=== PATIENT | male | born 1980 ===

== ENCOUNTER 2018-04-03 15:21 | Day surgery (SDC) | payer SELFPAY ==
[2018-04-03] MEDS ORDERED: Tdap Vaccine 0.5 ml Vial (10-64 yrs) IM ONE ×2 (15:38→15:55)
[2018-04-03] MEDS ORDERED: Sodium Chloride 0.9% 1,000 ML IV ONE (15:38)
[2018-04-03] MEDS ORDERED: Piperacillin/Tazobact 3.375 gm 100 ML IVPB STA (15:42)
[2018-04-03] MEDS ORDERED: Sodium Chloride 0.9% 1,000 ML ONE (16:00)
[2018-04-03] MEDS ORDERED: Piperacillin/Tazobact 3.375 gm 100 ML IVPB ONE (16:01)
[2018-04-03 16:40] LABS: BASO # 0.1 K/uL (0.0-0.2); BASO % 0.8 % (0.0-2.0); EOS # 0.2 K/uL (0.0-0.7); EOS % 2.1 % (0.0-4.0); HEMOGLOBIN 14.2 g/dL (12.0-18.0); LYMPH # 2.4 K/uL (1.0-4.3); LYMPH % 29.3 % (20.0-40.0); MEAN CELL VOLUME 85.2 fL (80.0-94.0); MEAN CORPUSCULAR HEMOGLOBIN 28.3 pg (27.0-31.0); MEAN CORPUSCULAR HGB CONC 33.2 g/dL (33.0-37.0); MEAN PLATELET VOLUME 9.6 fL (7.2-11.7); MONO # 0.6 K/uL (0.0-0.8); MONO % 7.8 % (0.0-10.0); NRBC % 0.1 % (0.0-2.0); RBC 5.01 Mil/uL (4.40-5.90); RED CELL DISTRIBUTION WIDTH 13.7 % (11.5-14.5); WHITE BLOOD COUNT 8.3 K/uL (4.8-10.8)
[2018-04-03 16:47] LABS: PROTHROMBIN TIME 10.4 SECONDS (9.7-12.2)
--- NOTE | 2018-04-03 16:55 | RAD ---
PROCEDURE: Right Hand Radiographs. HISTORY: Trauma COMPARISON: None. FINDINGS: Note that the examination is slightly limited due to apparent gauze/bandage is which overlie portions of the 2nd through 5th fingers. BONES: No definitive radiographic evidence of acute displaced fracture nor dislocation.. JOINTS: Normal. No significant degenerative osteoarthritic changes. SOFT TISSUES: There appears to be mild soft tissue swelling proximal margins of the 2nd 3rd and 4th fingers. No radiopaque foreign bodies are identified OTHER FINDINGS: None. IMPRESSION: Slightly limited study to overlying gauze and/or bandages as described. Demonstrating no evidence of acute displaced fracture nor dislocation.. Questionable soft tissue swelling proximal margins of the 2nd, 3rd and 4th fingers
[2018-04-03 17:02] LABS: ALB/GLOB RATIO 1.6 (1.0-2.1); ALBUMIN 4.7 g/dL (3.5-5.0); ALT/SGPT 17 U/L (21-72); AST/SGOT 26 U/L (17-59); BLOOD UREA NITROGEN 19 mg/dL (9-20); CALCIUM 8.7 mg/dl (8.6-10.4); GFR NON-AFRICAN AMERICAN > 60
--- NOTE | 2018-04-03 18:01 | CP.PCM.HP ---
History of Present Illness - History of Present Illness History of Present Illness: Plastic Surgery H&P This 37M with no PMH presented to the ED immediately following a right 2nd digit laceration that he sustained with a table saw. The patient reports that he came right to the ER. He reports that he has normal sensation however he is unable to extend his his affected digit. He denies any significant hemorrhage or any other compounding injuries. He deneis any fever chills chest pain or SOB. PMH: Denies PSH: Denies ALL: Denies Social: Denies vices Present on Admission - Present on Admission Any Indicators Present on Admission: No Review of Systems - Review of Systems Review of Systems: 12 point review of symptoms conducted and negative Past Patient History - Past Social History Smoking Status: Never Smoked - PSYCHIATRIC Hx Substance Use: No - SURGICAL HISTORY Hx Surgeries: No - ANESTHESIA Hx Anesthesia: No Meds Allergies/Adverse Reactions: Allergies Allergy/AdvReac Type Severity Reaction Status Date / Time No Known Allergies Allergy Verified 04/03/18 15:29 Physical Exam - Constitutional Appears: Non-toxic, No Acute Distress - Head Exam Head Exam: ATRAUMATIC, NORMOCEPHALIC - Eye Exam Eye Exam: EOMI - ENT Exam ENT Exam: Mucous Membranes Moist - Respiratory Exam Respiratory Exam: NORMAL BREATHING PATTERN - Cardiovascular Exam Cardiovascular Exam: +S1, +S2 - GI/Abdominal Exam GI & Abdominal Exam: Soft. absent: Tenderness - Extremities Exam Additional comments: Right 2nd digit laceration with skin avulsion, lacerated extensor tendon with exposed carpal bones, no hemorrhage. Sensation intact distal to laceration. Limited extension of the 2nd and 3rd digit. - Neurological Exam Neurological exam: Alert, Oriented x3 - Psychiatric Exam Psychiatric exam: Normal Affect, Normal Mood - Skin Skin Exam: Dry, Intact Results - Vital Signs Recent Vital Signs: Last Vital Signs Temp 98.9 F 04/03/18 16:57 Pulse 64 04/03/18 16:57 Resp 17 04/03/18 16:57 BP 124/77 04/03/18 16:57 Pulse Ox 99 04/03/18 16:57 - Labs Result Diagrams: 04/03/18 16:33 04/03/18 16:33 Labs: Laboratory Results - last 24 hr 04/03/18 04/03/18 04/03/18 16:33 16:33 16:33 WBC 8.3 RBC 5.01 Hgb 14.2 Hct 42.7 MCV 85.2 MCH 28.3 MCHC 33.2 RDW 13.7 Plt Count 217 MPV 9.6 Neut % (Auto) 60.0 Lymph % (Auto) 29.3 [place] % (Auto) 7.8 Eos % (Auto) 2.1 Baso % (Auto) 0.8 Neut # (Auto) 5.0 Lymph # (Auto) 2.4 [place] # (Auto) 0.6 Eos # (Auto) 0.2 Baso # (Auto) 0.1 PT INR APTT Sodium 138 Potassium 3.7 Chloride 102 Carbon Dioxide 26 Anion Gap 14 BUN 19 Creatinine 1.3 Est GFR ( Amer) > 60 Est GFR (Non-Af Amer) > 60 Random Glucose 93 Calcium 8.7 Total Bilirubin 0.3 AST 26 ALT 17 L Alkaline Phosphatase 73 Total Protein 7.6 Albumin 4.7 Globulin 2.9 Albumin/Globulin Ratio 1.6 Blood Type O POSITIVE Antibody Screen Negative 04/03/18 16:33 WBC RBC Hgb Hct MCV MCH MCHC RDW Plt Count MPV Neut % (Auto) Lymph % (Auto) [place] % (Auto) Eos % (Auto) Baso % (Auto) Neut # (Auto) Lymph # (Auto) [place] # (Auto) Eos # (Auto) Baso # (Auto) PT 10.4 INR 1.0 APTT 31 Sodium Potassium Chloride Carbon Dioxide Anion Gap BUN Creatinine Est GFR ( Amer) Est GFR (Non-Af Amer) Random Glucose Calcium Total Bilirubin AST ALT Alkaline Phosphatase Total Protein Albumin Globulin Albumin/Globulin Ratio Blood Type Antibody Screen Assessment & Plan - Assessment and Plan (Free Text) Assessment: 37M with traumatic complicated hand laceration with tendon injury Hand x-ray shows no fracture NPO Plan for OR this evening D/W Dr. Rigoberto Tong PGY3
--- NOTE | 2018-04-03 18:34 | C.PDOC ---
History Of Present Illness 37 year old male presents to the ED for evaluation of a laceration to his right hand which he sustained prior to arrival. Patient states he was using a table saw at work when he accidentally cut into his right hand. Patient is not up -to-date with tetanus immunization. He states he is right-hand dominant. Denies any other injuries or sensory changes. Time Seen by Provider: 04/03/18 15:31 Chief Complaint (Nursing): Finger,Hand,&Wrist History Per: Patient History/Exam Limitations: no limitations Onset/Duration Of Symptoms: Hrs Current Symptoms Are (Timing): Still Present Quality: "Pain" Additional History Per: Patient Past Medical History Reviewed: Historical Data, Nursing Documentation, Vital Signs Vital Signs: Last Vital Signs Temp 98.9 F 04/03/18 16:57 Pulse 64 04/03/18 16:57 Resp 17 04/03/18 16:57 BP 124/77 04/03/18 16:57 Pulse Ox 99 04/03/18 16:57 - Medical History PMH: No Chronic Diseases Surgical History: No Surg Hx - [facility] Procedures CLOSURE SKIN & SUBCUTANEOUS NEC (06/01/14) TETANUS TOXOID ADMINIST (06/01/14) Family History: States: Unknown Family Hx - Social History Hx Tobacco Use: No Hx Alcohol Use: Yes Hx Substance Use: No - Immunization History Hx Tetanus Toxoid Vaccination: No Hx Influenza Vaccination: No Hx Pneumococcal Vaccination: No Review Of Systems Except As Marked, All Systems Reviewed And Found Negative. Skin: Positive for: Other (laceration to right hand ) Neurological: Negative for: Weakness, Numbness Physical Exam - Physical Exam Appears: Non-toxic, No Acute Distress Skin: Warm, Dry Head: Atraumatic, Normacephalic Eye(s): bilateral: Normal Inspection, EOMI Nose: Normal Oral Mucosa: Moist Neck: Normal ROM, Supple Chest: Symmetrical Cardiovascular: Rhythm Regular Respiratory: Normal Breath Sounds, No Accessory Muscle Use Extremity: No Normal ROM (limited extension of the right 2nd digit.), Capillary Refill (less than 2 seconds ), Other (large, maserated laceration to right 2nd MCP with extensor tendon exposed) Pulses: Left Radial: Normal, Right Radial: Normal Neurological/Psych: Oriented x3, Normal Speech, Normal Cognition, Normal Sensation ED Course And Treatment - Laboratory Results Result Diagrams: 04/03/18 16:33 04/03/18 16:33 O2 Sat by Pulse Oximetry: 99 (on RA) Pulse Ox Interpretation: Normal - Other Rad right hand XR X-Ray: Viewed By Me, Read By Radiologist Interpretation: PROCEDURE: Right Hand Radiographs. HISTORY: Trauma. COMPARISON: None. FINDINGS: Note that the examination is slightly limited due to apparent gauze/bandage is which overlie portions of the 2nd through 5th fingers. BONES: No definitive radiographic evidence of acute displaced fracture nor dislocation.. JOINTS: Normal. No significant degenerative osteoarthritic changes. SOFT TISSUES: There appears to be mild soft tissue swelling proximal margins of the 2nd 3rd and 4th fingers. No radiopaque foreign bodies are identified. OTHER FINDINGS: None. IMPRESSION: Slightly limited study to overlying gauze and/or bandages as described. Demonstrating no evidence of acute displaced fracture nor dislocation.. Questionable soft tissue swelling proximal margins of the 2nd, 3rd and 4th fingers Progress Note: Right hand XR ordered and reviewed. Tetanus immunization IM, Morphine IVP, Zofran IVP, Zosyn IVP, and IV fluids given. Case discussed with Dr. Franklin (hand surgeon automation qa tester, who instructs to have patient evaluated by resident. Tristin Flynn evaluated the patient at bedside and agreed upon admission. Disposition - Disposition Disposition: HOSPITALIZED Disposition Time: 22:25 Condition: STABLE - Clinical Impression Clinical Impression: Laceration of hand involving extensor tendon - PA / INDUSTRIAL SERVICE TECHNICIAN / Resident Statement MD/DO has reviewed & agrees with the documentation as recorded. - Scribe Statement The provider has reviewed the documentation as recorded by the Scribe (Sherrie Temple) All medical record entries made by the Scribe were at my direction and person ally dictated by me. I have reviewed the chart and agree that the record accurately reflects my personal performance of the history, physical exam, medical decision making, and the department course for this patient. I have also personally directed, reviewed, and agree with the discharge instructions and disposition.
[2018-04-03] MEDS ORDERED: Lidocaine 2% MPF (5 ml) Inj ONE (19:37)
[2018-04-03] MEDS ORDERED: Bupivacaine HCl 0.5% PF (30 ml) Inj ONE (19:37)
[2018-04-03] MEDS ORDERED: Midazolam 2 MG/2 ML VIAL ONE (19:58)
[2018-04-03] MEDS ORDERED: Propofol 10 mg/ml Inj (20 ML) ONE (19:58)
[2018-04-03] MEDS ORDERED: HYDROmorphone 0.5 mg/0.5 ml ISec IVP PRN (20:34)
--- NOTE | 2018-04-03 21:15 | PCM.SURG1 ---
Surgeon's Initial Post Op Note - Surgeon's Notes Surgeon: Dr. Franklin Bad Cloth Checker: Dr. Tong Type of Anesthesia: General LMA Anesthesia Administered By: Dr. St Pre-Operative Diagnosis: Volar right hand laceration, with extensor tendon transection and capsule rupture Operative Findings: See operative dictation Post-Operative Diagnosis: Volar right hand laceration, with extensor tendon transection and capsule rupture Operation Performed: repair of right extensor tendon transection and and capsule. Complex wound closure Specimen/Specimens Removed: none Estimated Blood Loss: EBL {In ML}: 5 Blood Products Given: N/A Drains Used: No Drains Post-Op Condition: Good Date of Surgery/Procedure: 04/03/18 Time of Surgery/Procedure: 21:15
[2018-04-03 21:54] VITALS: PULSE 63
[2018-04-03 22:05] VITALS: O2SAT 99
[2018-04-03 22:40] VITALS: BP 138/90; RESP 14; TEMP 97.8
--- NOTE | 2018-04-09 23:00 | OP ---
PROCEDURE DATE: 04/03/2018 PREOPERATIVE DIAGNOSES: 1. Open wound of right hand, S61.401A. 2. Open wound of right index finger, S61.200A. 3. Traumatic left third metacarpophalangeal joint capsule and ligaments, S63.400A. 4. Open wound of extensor tendon of right index finger overlying metacarpophalangeal joint, S66.320A. POSTOPERATIVE DIAGNOSES: 1. Open wound of right hand, S61.401A. 2. Open wound of right index finger, S61.200A. 3. Traumatic left third metacarpophalangeal joint capsule and ligaments, S63.400A. 4. Open wound of extensor tendon of right index finger overlying metacarpophalangeal joint, S66.320A. PROCEDURES: 1. Repair of capsule of interphalangeal joint (arthroplasty) of right index finger, CPT 82666. 2. Repair of extensor tendon laceration of right index finger, CPT 73686. 3. Repair of open wound of left hand, CPT 19839. SURGEON: Manuel Franklin MD CLINICAL NOTE: This 37-year-old male presented to the [facility] Emergency Room on 04/03/2018 after sustaining an open wound of his right hand and index finger while working with power tools. On the dorsal surface of the level of the metacarpophalangeal joint, there was a large flat laceration and the extensor tendon was not only disrupted but the injury had gone through the metacarpophalangeal joint capsule to expose the articular surface of the joint. On examination, in addition to the open wound, the patient was unable to extend the finger. X-rays revealed no fracture. There was also another wound of the dorsum of the hand, which was approximately 10 cm in length. Careful examination of the finger indicted that there was no neurovascular deficit. Since the nature of the injury was outside the competence of the emergency department, a plastic surgery consultation was called. The nature of the injury and proposed repair was outlined to the patient and informed consent outlining potential risks of failure and complications related to the proposed surgical repair was obtained prior to repairing these injuries. No guarantee of outcome was provided to the patient. DESCRIPTION OF PROCEDURE: The patient was commenced on the intravenous antibiotics prior to surgery and taken to the operative room. After general anesthesia was induced, the hand was prepped and draped in the usual manner. Infiltrative local anesthesia was obtained using 5 mL of 1% lidocaine with adrenaline mixed equally with 0.5% Marcaine. After an adequate level of anesthesia was obtained, the open wounds were thoroughly irrigated and marginal areas of skin debrided as necessary. The finger skin wound was extended in a Z manner to allow thorough exploration of the injury. The transected extensor tendon edges were located and the underlying capsule of the interphalangeal joint inspected. This capsule has also been transected and the articular surfaces of the joint were visible. Repair was commenced by placing the joint in hyperextension and the capsule repaired with 5-0 Vicryl and the extensor tendon was then repaired with 4-0 Prolene. Meticulous hemostasis was obtained and the skin edges of the flap and the open wound of the dorsal aspect of the finger were then reapproximated and repaired with multiple sutures of 4-0 nylon and gabby. The open wound of the dorsum of the hand was then repaired in layers. The wounds were then dressed in the usual manner and the splint applied to keep the thumb in extension and tension after repair. The patient was given discharge instructions to follow up in the office within the week and not to remove the dressing and splint. He was also given a prescription for Percocet for pain relief and Keflex for antibiotic coverage. Manuel Franklin MD
== END 2018-04-03 22:30 | disposition home or self-care (01) ==
LOC: C.ER 15:21 → C.SDS 16:53
PROVIDERS: ATTEND Plastic Surgery
DX: S66.322A Laceration of extensor muscle, fascia and tendon of right middle finger at wrist and hand level, initial encounter (principal); S61.212A Laceration without foreign body of right middle finger without damage to nail, initial encounter; W31.2XXA Contact with powered woodworking and forming machines, initial encounter
CPT/HCPCS: 26530; 73130; 80053; 85025; 85610; 85730; 86850; 86900; 90471; 90715; 96365; 96375; 99285; J1170; J2001; J2250; J2270; J2405; J2543; J2704; J3010; J7030